=== PATIENT | female | born 1980 | race Two or more races ===

== ENCOUNTER 2016-07-17 12:47 | Emergency (ER) | payer OTHER ==
[~2016-07-17 12:47] MED LIST: NAPROSYN500 MG PO; PYRIDOXINE HCL25 MG PO; SLEEP AID25 M1 PO; TRIPLE ANTIB28.35 GM TP; ZOFRAN ODT4 MG PO
== END 2016-07-17 13:00 | disposition left against medical advice (07) ==
LOC: EME 12:47
DX: F41.9 Anxiety disorder, unspecified (principal); Z53.21 Procedure and treatment not carried out due to patient leaving prior to being seen by health care provider
CPT/HCPCS: 99281; 99283